=== PATIENT | male | born 1965 | race African-American/Black ===

== ENCOUNTER 2019-04-26 13:21 | Emergency (ER) | payer OTHER ==
[~2019-04-26] VITALS: Ht 188 cm; Wt 73.0 kg
[2019-04-26 15:45] VITALS: BP 168/89
== END 2019-04-26 15:56 | disposition left against medical advice (07) ==
LOC: ER 13:21
DX: E11.649 Type 2 diabetes mellitus with hypoglycemia without coma (principal); E78.00 Pure hypercholesterolemia, unspecified; I10 Essential (primary) hypertension; T38.3X5A Adverse effect of insulin and oral hypoglycemic [antidiabetic] drugs, initial encounter; Y92.89 Other specified places as the place of occurrence of the external cause
CPT/HCPCS: 82962; 99283